=== PATIENT | female | born 1985 | race Hispanic/Latino ===

== ENCOUNTER 2021-04-24 09:18 | Emergency (ER) | payer OTHER ==
[2021-04-24 09:56] LABS: Basophils % 1.3 % (0-1.3); Lymphocytes % 23.3 % (15.3-44.8); MPV 7.9 fL (7.6-11.3); RBC Red Blood Cell Count 4.42 M/uL (3.86-4.86)
[2021-04-24 10:13] LABS: ALT/SGPT 19 U/L (12-78); AST/SGOT 9 U/L (15-37); Albumin 3.8 g/dL (3.4-5.0); Alkaline Phosphatase 74 U/L (45-117); BUN Blood Urea Nitrogen 10 mg/dL (7-18); Bicarbonate 25 mmol/L (21-32); Bilirubin Direct < 0.1 mg/dL (0-0.2); Bilirubin Total 0.3 mg/dL (0.2-1.0); Glucose Level 95 mg/dL (74-106); Lipase 94 U/L (73-393); Potassium 3.9 mmol/L (3.5-5.1); Protein, Total 7.2 g/dL (6.4-8.2); Sodium Level 141 mmol/L (136-145)
[2021-04-24] MEDS ORDERED: ONDANSETRON 4 MG/2 ML VIAL ONE (10:13)
[2021-04-24] MEDS ORDERED: MORPHINE 4 MG/ML SYR ONE (10:13)
[2021-04-24 10:44] LABS: Urine Blood Negative (Negative); Urine Glucose Negative (Negative); Urine Protein Negative (Negative); Urine pH 6.5 (5.0-7.0)
[2021-04-24 11:21] LABS: Anisocytosis 1+; Blood Morphology Comment NOTED (NOT SEEN); Platelet Estimate INCR; White Blood Cell Scan OK (OK)
[2021-04-24 11:22] LABS: Hypochromasia 2+
--- NOTE | 2021-04-24 11:22 | RAD REPORT ---
EXAM DESCRIPTION: CTAbdomen Pelvis W Contrast - 04/24/2021 10:55 am CLINICAL HISTORY: Abdominal pain. abdominal pain COMPARISON: CT ABD PELVIS W CONTRAST dated 11/19/2015 TECHNIQUE: Biphasic CT imaging of the abdomen and pelvis was performed with 100 ml non-ionic IV cont rast. All CT scans are performed using dose optimization technique as appropriate and may include automated exposure control or mA/KV adjustment according to patient size. FINDINGS: The lung bases are clear. The liver, spleen, pancreas, adrenal glands and kidneys are within normal limits. No bowel obstruction, free air, free fluid or abscess. Moderate fat containing umbilical hernia. The appendix is normal. No evidence of significant lymphadenopathy. No suspicious bony findings. The cervix appears enlarged somewhat irregular. There is irregular fluid in the cervix canal recommen d pelvic exam followup direct visualization. Infection or neoplasia are possible. IMPRESSION: Enlarged and irregular appearance to the cervix with inflammation pelvic fat. Bulky irre gular cervix with fluid warrants direct visualization/ pelvic examination. Neoplasia versus infection are both possibilities.
[2021-04-24] MEDS ORDERED: KETOROLAC 30 MG/ML INJ ONE (12:33)
[2021-04-24] MEDS ORDERED: FENTANYL CITR 100 MCG/2 ML ONE (12:33)
--- NOTE | 2021-04-24 13:28 | RAD REPORT ---
EXAM DESCRIPTION: US - Pelvis Complete - 04/24/2021 12:43 pm CLINICAL HISTORY: ABD PAIN Pelvic pain. COMPARISON: <Comparisons> FINDINGS: The uterus is normal in size, shape and echotexture. The uterus measures 12.2 x 6.4 x 3.5 cm The endometrial stripe measures 4 mm, normal. Mild fluid is seen in the lower uterine segment. Both ovaries are normal in size, shape and echotexture. The right ovary measures 3.9 x 2.6 cm. The left ovary measures 2.8 x 2.0 cm. No ovarian or parovarian lesions. No adnexal masses. Normal Doppler blood flow was demonstrated to both ovaries. Mild pelvic free fluid. IMPRESSION: Mild fluid is seen in the lower uterine and pelvis.No evidence of ovarian torsion.
--- NOTE | 2021-04-24 14:31 | ER ---
Nurse's Notes [facility] Name: Jana Draper Age: 35 yrs Sex: Female : 1985 Arrival Date: 04/24/2021 Time: 09:21 Bed 8 Private MD: Diagnosis: Pelvic Pain;Lower abdominal pain, unspecified;Anemia, unspecified Presentation: 04/24 09:28 Ebola Screen: Patient denies travel to an Ebola-affected area in the 21 days before ll1 illness onset. Risk Assessment: Do you want to hurt yourself or someone else? Patient reports no desire to harm self or others. 09:28 Acuity: MITCHEL 3 ll1 09:28 Method Of Arrival: Ambulatory 1 09:34 Chief complaint: Patient states: Abdominal pain since 04/12. Coronavirus screen: Client kg denies travel out of the [place] in the last 14 days. At this time, unable to obtain information related to travel outside the [place] At this time, the client does not indicate any symptoms associated with coronavirus-19. Initial Sepsis Screen: Does the patient meet any 2 criteria? No. Patient's initial sepsis screen is negative. Does the patient have a suspected source of infection? No. Patient's initial sepsis screen is negative. Onset of symptoms was April 12, 2021. Triage Assessment: 09:36 General: Appears in no apparent distress. Behavior is calm, cooperative, appropriate kg for age. Pain: Complains of pain in epigastric area, umbilical area and suprapubic area Pain currently is 10 out of 10 on a pain scale. at worst was 10 out of 10 on a pain scale. GI: Reports lower abdominal pain, upper abdominal pain. 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 - Social history:: Smoking status: Patient denies any tobacco usage or history of. Screenin:27 Abuse screen: Denies threats or abuse. Nutritional screening: No deficits noted. ll1 Tuberculosis screening: No symptoms or risk factors identified. Fall Risk IV access (20 points). Total Merino Fall Scale indicates No Risk (0-24 pts). Assessment: 09:40 General: Appears uncomfortable, Behavior is calm, cooperative, appropriate for age. ll1 Pain: Complains of pain in abdomen. Neuro: No deficits noted. Cardiovascular: No deficits noted. Respiratory: No deficits noted. GI: Abdomen is flat, Bowel sounds present X 4 quads. Abd is soft and non tender X 4 quads. Reports lower abdominal pain, upper abdominal pain. 10:40 Reassessment: No changes from previously documented assessment. Patient and/or family ll1 updated on plan of care and expected duration. Pain level reassessed. 11:40 Reassessment: No changes from previously documented assessment. Patient and/or family ll1 updated on plan of care and expected duration. Pain level reassessed. Patient is alert, oriented x 3, equal unlabored respirations, skin warm/dry/pink. 12:40 Reassessment: No changes from previously documented assessment. Patient and/or family ll1 updated on plan of care and expected duration. Pain level reassessed. Patient is alert, oriented x 3, equal unlabored respirations, skin warm/dry/pink. 13:40 Reassessment: No changes from previously documented assessment. Patient and/or family ll1 updated on plan of care and expected duration. Pain level reassessed. Patient is alert, oriented x 3, equal unlabored respirations, skin warm/dry/pink. 14:40 Reassessment: No changes from previously documented assessment. Patient and/or family ll1 updated on plan of care and expected duration. Pain level reassessed. Patient is alert, oriented x 3, equal unlabored respirations, skin warm/dry/pink. 15:40 Reassessment: No changes from previously documented assessment. Patient and/or family ll1 updated on plan of care and expected duration. Pain level reassessed. 16:40 Reassessment: No changes from previously documented assessment. Patient and/or family ll1 updated on plan of care and expected duration. Pain level reassessed. Vital Signs: 09:34 BP 102 / 63; Pulse 70; Resp 18; Temp 98.3(O); Pulse Ox 100% on R/A; Weight 67.2 kg; kg Height 5 ft. 4 in. (162.56 cm); Pain 10/10; 15:23 BP 104 / 68; Pulse 67; Resp 16; Pulse Ox 100% on R/A; ll1 09:34 Body Mass Index 25.43 (67.20 kg, 162.56 cm) kg ED Course: 09:21 Patient arrived in ED. ds1 09:23 Froylan Olea PA is PHCP. jmm 09:23 Sergei Conner MD is Attending Physician. jmm 09:24 Arm band placed on Patient placed in an exam room, on a stretcher. ll1 09:27 Terri Lawson, GIRISH is Primary Nurse. ll1 09:28 Triage completed. ll1 09:35 Inserted saline lock: 22 gauge in right antecubital area, using aseptic technique. ll1 Blood collected. 09:37 Patient has correct armband on for positive identification. Bed in low position. Call kg light in reach. Side rails up X 1. 10:55 CT Abd/Pelvis - IV Contrast Only In Process Unspecified. EDMS 12:45 US Pelvis Complete In Process Unspecified. EDMS 15:24 No provider procedures requiring assistance completed. IV discontinued, intact, ll1 bleeding controlled, No redness/swelling at site. Pressure dressing applied. Administered Medications: 10:00 Drug: morphine 4 mg Route: IVP; Site: right antecubital; 1 12:23 Follow up: Response: No adverse reaction; RASS: Alert and Calm (0) ll1 10:00 Drug: Zofran (Ondansetron) 4 mg Route: IVP; Site: right antecubital; ll1 12:24 Follow up: Response: No adverse reaction; RASS: Alert and Calm (0) ll1 12:20 Drug: Ketorolac 30 mg Route: IVP; Site: right antecubital; ll1 15:24 Follow up: Response: No adverse reaction ll1 12:23 Drug: fentaNYL (PF) 25 mcg Route: IVP; Site: right antecubital; ll1 12:23 Follow up: Response: No adverse reaction; RASS: Alert and Calm (0) ll1 14:58 Drug: AZITHromycin 1 grams Route: PO; ll1 15:24 Follow up: Response: No adverse reaction; RASS: Alert and Calm (0) 1 14:59 Drug: Rocephin (cefTRIAXone) 1 grams Route: IV; Rate: calculated rate; Site: right ll1 antecubital; 15:24 Follow up: Response: No adverse reaction; IV Status: Completed infusion; IV Intake: [id number] Intake: 15:24 IV: 20ml; Total: 20ml. 1 Outcome: 14:31 Discharge ordered by MD. serra 15:25 Patient left the ED. 1 15:25 Discharged to home ambulatory. [facility] 15:25 Condition: stable 15:25 Discharge instructions given to patient, Instructed on discharge instructions, follow up and referral plans. medication usage, Demonstrated understanding of instructions, follow-up care, medications, Prescriptions given X 2. Signatures: Dispatcher [employer] EDMS Froylan Olea PA PA jmm Sanford, Demi ds1 Treri Lawson RN RN ll1 Jodie Barragan RN RN kg
--- NOTE | 2021-04-24 14:31 | EDPHYS ---
Physician Documentation [facility] Name: Jana Draper Age: 35 yrs Sex: Female : 1985 Arrival Date: 04/24/2021 Time: 09:21 Bed 8 Private MD: ED Physician Sergei Conner HPI: 04/24 09:37 This 35 yrs old Female presents to ER via Ambulatory with complaints of jmm Abdominal Pain. 09:37 The patient presents with abdominal pain. Onset: The symptoms/episode began/occurred jmm gradually, 1 day(s) ago. The symptoms do not radiate. Associated signs and symptoms: Pertinent negatives: diarrhea, dysuria, fever, hematuria, vomiting. The symptoms are described as achy. Modifying factors: The symptoms are alleviated by nothing, the symptoms are aggravated by nothing. The patient has not experienced similar symptoms in the past. 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 - Social history:: Smoking status: Patient denies any tobacco usage or history of. ROS: 09:37 Constitutional: Negative for fever, chills, and weight loss, Cardiovascular: Negative jmm for chest pain, palpitations, and edema, Respiratory: Negative for shortness of breath, cough, wheezing, and pleuritic chest pain. 09:37 Abdomen/GI: Positive for abdominal pain. 09:37 All other systems are negative. Exam: 09:37 Constitutional: This is a well developed, well nourished patient who is awake, alert, jmm and in no acute distress. Head/Face: atraumatic. Eyes: EOMI, no conjunctival erythema appreciated ENT: Moist Mucus Membranes Neck: Trachea midline, Supple Chest/axilla: Normal chest wall appearance and motion. Cardiovascular: Regular rate and rhythm. No edema appreciated Respiratory: Normal respirations, no respiratory distress appreciated Abdomen/GI: Non distended, soft Back: Normal ROM Skin: General appearance color normal MS/ Extremity: Moves all extremities, no obvious deformities appreciated, no edema noted to the lower extremities Neuro: Awake and alert, normal gait Psych: Behavior is normal, Mood is normal, Patient is cooperative and pleasant Vital Signs: 09:34 BP 102 / 63; Pulse 70; Resp 18; Temp 98.3(O); Pulse Ox 100% on R/A; Weight 67.2 kg; kg Height 5 ft. 4 in. (162.56 cm); Pain 10/10; 15:23 BP 104 / 68; Pulse 67; Resp 16; Pulse Ox 100% on R/A; ll1 09:34 Body Mass Index 25.43 (67.20 kg, 162.56 cm) kg MDM: 09:33 Patient medically screened. [facility] 14:26 Data reviewed: vital signs, nurses notes. Counseling: I had a detailed discussion with ponce the patient and/or guardian regarding: the historical points, exam findings, and any diagnostic results supporting the discharge/admit diagnosis, lab results, radiology results, the need for outpatient follow up, to return to the emergency department if symptoms worsen or persist or if there are any questions or concerns that arise at home. ED course: Patient is alert and non toxic in appearance in the ED. Pain is relieved. Patient advised to follow up with PERSONNEL SCHEDULER for further evaluation. Patient understood and agrees with the plan of care. . 04/24 09:34 Order name: Basic Metabolic Panel; Complete Time: 10:29 [facility] 04/24 09:34 Order name: CBC with Diff; Complete Time: 11:23 [facility] 04/24 09:34 Order name: Hepatic Function; Complete Time: 10:29 [facility] 04/24 09:34 Order name: Lipase; Complete Time: 10:29 [facility] 04/24 10:21 Order name: Test, Serum; Complete Time: 11:05 1 04/24 10:43 Order name: Urine Dipstick-Ancillary; Complete Time: 10:53 [facility] 04/24 09:34 Order name: CT Abd/Pelvis - IV Contrast Only; Complete Time: 11:23 [facility] 04/24 10:44 Order name: Urine --Ancillary (enter results); Complete Time: 11:05 04/24 11:21 Order name: CBC Smear Scan; Complete Time: 11:23 [facility] 04/24 11:25 Order name: US Pelvis Complete; Complete Time: 13:35 [facility] 04/24 11:26 Order name: GC (GONORR/CHLAMYDIA) Probe [facility] 04/24 11:26 Order name: Wet Prep; Complete Time: 14:50 [facility] 04/24 12:10 Order name: CREATININE WHOLE BLOOD; Complete Time: 12:11 [facility] 04/24 09:34 Order name: IV Saline Lock; Complete Time: 09:35 [facility] 04/24 09:34 Order name: Labs collected and sent; Complete Time: 09:35 [facility] 04/24 09:34 Order name: Urine Dipstick-Ancillary (obtain specimen); Complete Time: 09:34 [facility] 04/24 09:34 Order name: Urine Test (obtain specimen); Complete Time: 10:47 [facility] Administered Medications: 10:00 Drug: morphine 4 mg Route: IVP; Site: right antecubital; ll1 12:23 Follow up: Response: No adverse reaction; RASS: Alert and Calm (0) ll1 10:00 Drug: Zofran (Ondansetron) 4 mg Route: IVP; Site: right antecubital; ll1 12:24 Follow up: Response: No adverse reaction; RASS: Alert and Calm (0) ll1 12:20 Drug: Ketorolac 30 mg Route: IVP; Site: right antecubital; ll1 15:24 Follow up: Response: No adverse reaction ll1 12:23 Drug: fentaNYL (PF) 25 mcg Route: IVP; Site: right antecubital; ll1 12:23 Follow up: Response: No adverse reaction; RASS: Alert and Calm (0) ll1 14:58 Drug: AZITHromycin 1 grams Route: PO; ll1 15:24 Follow up: Response: No adverse reaction; RASS: Alert and Calm (0) ll1 14:59 Drug: Rocephin (cefTRIAXone) 1 grams Route: IV; Rate: calculated rate; Site: right ll1 antecubital; 15:24 Follow up: Response: No adverse reaction; IV Status: Completed infusion; IV Intake: [id number] Disposition Summary: 04/24/21 14:31 Discharge Ordered Location: Home [facility] Condition: Stable [facility] Diagnosis - Pelvic Pain jmm - Lower abdominal pain, unspecified jmm - Anemia, unspecified jmm Followup: [facility] - With: Private Physician - When: 2 - 3 days - Reason: Recheck today's complaints, Continuance of care, Re-evaluation by your physician Discharge Instructions: - Discharge Summary Sheet jmm - Abdominal Pain, Adult jmm - Pelvic Pain, Female jmm Forms: - Medication Reconciliation Form jmm - Thank You Letter jmm - Antibiotic Education jmm - Prescription Opioid Use jmm - Work release form eb Prescriptions: - Ferrous Sulfate 325 mg (65 mg Iron) Oral Tablet - take 1 tablet by ORAL route every 8 hours; 90 tablet; Refills: 0, Product jmm Selection Permitted - Ultracet 37.5-325 mg Oral Tablet - take 1 tablet by ORAL route every 6 hours - for up to 5 days; do not exceed 8 jmm tablets per day.; 20 tablet; Refills: 0, Product Selection Permitted Addendum: 04/26/2021 13:34 Co-signature as Attending Physician, Sergei Conner MD I agree with the assessment and k dr plan of care. Signatures: Dispatcher [employer] Sergei Carrington MD MD kdr Mickail, Joel, PA PA jmm Lewis, Lynsay, RN RN ll1 Jodie Barragan RN RN kg
[2021-04-24] MEDS ORDERED: AZITHROMYCIN 250 MG TAB ONE (15:11)
[2021-04-24] MEDS ORDERED: CEFTRIAXONE/SWI 1gm 1 GM/10 ML SYR ONE (15:11)
[2021-04-24 15:39] VITALS: TEMP 98.3; O2SAT 100
[2021-04-24 15:40] VITALS: BP 104/68
== END 2021-04-24 15:25 | disposition home or self-care (01) ==
LOC: ER 09:18
DX: R10.2 Pelvic and perineal pain (principal); D64.9 Anemia, unspecified
CPT/HCPCS: 96365; 85025; 80048; 36415; 84703; 81025; 82565; 80076; 87210; 81003; 83690; 87590; 87490; 74177; 76856; 96375; 99284; Q9967; J3010; J0696; J2405

== ENCOUNTER 2022-03-29 08:50 | Emergency (ER) | payer OTHER ==
[2022-03-29] MEDS ORDERED: FLUORESCEIN SODIUM 1 MG/WRAP ONE (09:14)
[2022-03-29] MEDS ORDERED: TETRACAINE HCL 0.5% 4ML OPTH ONE (09:14)
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
[2022-03-29] MEDS ORDERED: GENTAMICIN 0.3% OPTH DROP 5ML ONE (10:41)
[2022-03-29 10:43] VITALS: BP 116/88; TEMP 98.3; O2SAT 100
== END 2022-03-29 10:38 | disposition home or self-care (01) ==
LOC: ER 08:50
DX: H10.31 Unspecified acute conjunctivitis, right eye (principal)
CPT/HCPCS: 99283

== ENCOUNTER 2023-09-06 09:55 | Emergency (ER) | payer OTHER ==
[2023-09-06 11:54] LABS: Absolute Lymphocytes (CBC) 1.7 K/uL (0.7-4.9); Hematocrit 28.4 % (36.0-45.0); MPV 7.3 fL (7.6-11.3); Platelets 485 thou/uL (152-406); RBC Red Blood Cell Count 4.37 M/uL (3.86-4.86)
[2023-09-06 11:57] LABS: Specific Gravity 1.005 (1.005-1.030)
[2023-09-06 12:09] LABS: Specific Gravity 1.005 (1.005-1.030); Urine Bacteria None Seen /HPF (<20); Urine Bilirubin NEGATIVE (Negative); Urine Blood Negative (Negative); Urine Clarity Clear (Clear); Urine Color Colorless (Yellow); Urine Glucose NEGATIVE (Negative); Urine Protein NEGATIVE (Negative); Urine RBC <5 /HPF (None Seen); Urine Urobilinogen Normal (Normal)
[2023-09-06 12:11] LABS: Albumin 3.6 g/dL (3.4-5.0); Bilirubin Total 0.2 mg/dL (0.2-1.0); Potassium 3.7 mEq/L (3.5-5.1); Protein, Total 7.4 g/dL (6.4-8.2)
[2023-09-06 12:41] LABS: Anisocytosis 1+; Blood Morphology Comment NOTED (NOT SEEN); Hypochromasia 2+; Ovalocytes 1+; Platelet Estimate INCR; White Blood Cell Scan OK (OK)
--- NOTE | 2023-09-06 12:47 | RAD REPORT ---
EXAM DESCRIPTION: CTAbdomen Pelvis Wo Contrast - 09/06/2023 12:37 pm CLINICAL HISTORY: ABD PAIN COMPARISON: Abdomen Pelvis W Contrast dated 04/24/2021; Stone Protocol dated 12/14/2017; CT ABD PELVI S W CONTRAST dated 11/19/2015 TECHNIQUE: CT of the abdomen and pelvis was performed. All CT scans are performed using dose optimization technique as appropriate and may include automated exposure control or mA/KV adjustment according to patient size. FINDINGS: Lower chest: No acute abnormality. Question mild cardiomegaly. Liver: No acute abnormality or suspicious lesions. Biliary: No biliary ductal dilatation. Stomach: No significant focal abnormality. Duodenum: No significant focal abnormality. Pancreas: No significant abnormality. Spleen: No significant abnormality. Adrenal: No suspicious lesions. Kidney/ureter: No hydronephrosis. No renal calculi. Retroperitoneum: No retroperitoneal adenopathy. Vascular: No aneurysm. Bowel: No significant focal abnormality. Normal appendix. Peritoneum: No ascites or free air. Fat containing umbilical hernia. Bladder: Grossly unremarkable. Reproductive: No adnexal masses. Bones: No acute fracture. Other: n/a IMPRESSION: No acute intra-abdominal or pelvic finding. Normal appendix. No urinary tract calculi.
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
--- NOTE | 2023-09-06 13:17 | EDPHYS ---
Physician Documentation [facility] Name: Sydney Draper Age: 37 yrs Sex: Female : 1985 Arrival Date: 09/06/2023 Time: 09:55 Bed 19 Private MD: ED Physician Saji Cross HPI: 09/06 10:32 This 37 yrs old Female presents to ER via Ambulatory with complaints of Low rt Back Pain, Abdominal Pain. 10:32 Patient presents to the ED with about 1 week of a right lower back pain that radiates rt to the suprapubic region. She reports slight burning with urination. States that the pain is worse with walking, not take anything for relief. Pain is aching nature, otherwise radiating, moderate severity, no other aggravating elevating factors.. 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 - Social history:: Smoking status: Patient denies any tobacco usage or history of. - Family history:: not pertinent. ROS: 10:32 Constitutional: Negative for fever, chills, and weight loss, Cardiovascular: Negative rt for chest pain, palpitations, and edema, Respiratory: Negative for shortness of breath, cough, wheezing, and pleuritic chest pain, MS/Extremity: Negative for injury and deformity, Skin: Negative for injury, rash, and discoloration, Neuro: Negative for headache, weakness, numbness, tingling, and seizure, Psych: Negative for depression, anxiety, suicide ideation, homicidal ideation, and hallucinations, 10:32 Back: Positive for pain with movement, Negative for injury or acute deformity, 10:32 : Positive for burning with urination, Negative for flank pain, Exam: 10:32 Constitutional: This is a well developed, well nourished patient who is awake, alert, rt and in no acute distress. Head/Face: Normocephalic, atraumatic. Chest/axilla: Normal chest wall appearance and motion. Nontender with no deformity. No lesions are appreciated. Cardiovascular: Regular rate and rhythm with a normal S1 and S2. No gallops, murmurs, or rubs. Normal PMI, no JVD. No pulse deficits. Respiratory: Lungs have equal breath sounds bilaterally, clear to auscultation and percussion. No rales, rhonchi or wheezes noted. No increased work of breathing, no retractions or nasal flaring. Skin: Warm, dry with normal turgor. Normal color with no rashes, no lesions, and no evidence of cellulitis. MS/ Extremity: Pulses equal, no cyanosis. Neurovascular intact. Full, normal range of motion. Neuro: Awake and alert, GCS 15, oriented to person, place, time, and situation. Cranial nerves II-XII grossly intact. Motor strength 5/5 in all extremities. Sensory grossly intact. Cerebellar exam normal. Normal gait. Psych: Awake, alert, with orientation to person, place and time. Behavior, mood, and affect are within normal limits. 10:32 Abdomen/GI: Mild tenderness to the suprapubic region without rebound, guarding, distention, 10:32 Back: Tenderness to the right lower lumbar region, no midline tenderness, no CVAT, Vital Signs: 10:03 BP 108 / 76; Pulse 70; Resp 18; Temp 98; Pulse Ox 100% ; Weight 68.04 kg; Height 5 ft. mb9 0 in. ; 12:00 BP 107 / 66; Pulse 66; Resp 18; Pulse Ox 99% on R/A; db 14:15 BP 111 / 61; Pulse 65; Resp 17; Pulse Ox 98% ; ll1 10:03 Body Mass Index 29.29 (68.04 kg, 152.4 cm) mb9 MDM: 10:18 Patient medically screened. rt 13:20 Differential diagnosis: Mechanical back pain, kidney stone, pyelonephritis. Data rt reviewed: vital signs, nurses notes, lab test result(s), radiologic studies. I considered the following discharge prescriptions or medication management in the emergency department Medications were administered in the Emergency Department. See MAR. Independent interpretation of the following test(s) in the Emergency Department CT Scan: My interpretation is No ureteral stone seen on interpretation of CT scan images. Test considered but Not performed: MRI: Symptoms are not consistent with cauda equina syndrome, spinal epidural abscess, MRI is not emergently indicated. Counseling: I had a detailed discussion with the patient and/or guardian regarding the historical points, exam findings, and any diagnostic results supporting the discharge/admit diagnosis, lab results, radiology results, the need for outpatient follow up. Response to treatment: the patient's symptoms have markedly improved after treatment. 09/06 10:26 Order name: UAM; Complete Time: 12:22 rt 09/06 10:26 Order name: PREGU; Complete Time: 12:22 rt 09/06 10:26 Order name: CBC with Diff; Complete Time: 12:43 rt 09/06 10:26 Order name: CMP; Complete Time: 12:22 rt 09/06 11:59 Order name: CBC Smear Scan; Complete Time: 12:43 EDMS 09/06 10:26 Order name: CT Abd/Pelvis - Without Contrast; Complete Time: 12:49 rt Administered Medications: 11:50 Drug: Ketorolac IVP 15 mg IVP once Route: IVP; Site: right antecubital; db 14:16 Follow up: Response: No adverse reaction; Pain is decreased; RASS: Alert and Calm (0) ll1 Disposition Summary: 09/06/23 13:16 Discharge Ordered Notes: Location: Home rt Problem: new rt Symptoms: have improved rt Condition: Stable rt Diagnosis - Low back pain rt Followup: rt - With: Private Physician - When: 2 - 3 days - Reason: Discharge Instructions: - Discharge Summary Sheet rt - Acute Back Pain, Adult rt Forms: - Medication Reconciliation Form rt - Thank You Letter rt - Antibiotic Education rt - Prescription Opioid Use rt - Patient Portal Instructions rt - Leadership Thank You Letter rt Prescriptions: - Cyclobenzaprine 10 mg Oral Tablet - take 1 tablet ORAL route every 8 hours As needed; 30 tablet; Refills: 0, rt Product Selection Permitted Signatures: Dispatcher [employer] Gissell Marinelli RN RN Megan Porter RN RN mb9 Saji Cross MD MD rt Terri Lawson RN ll1
[2023-09-06 14:45] VITALS: TEMP 98
[2023-09-06 14:48] VITALS: BP 111/61; O2SAT 98
== END 2023-09-06 14:16 | disposition home or self-care (01) ==
LOC: ER 09:55
DX: M54.50 Low back pain, unspecified (principal)
CPT/HCPCS: 36415; 74176; 80053; 81001; 81025; 85025; 96374; 99284

== ENCOUNTER → 2024-01-04 | Emergency (ER) | payer OTHER ==
[~2024-01-04] MED LIST: DIPHENHYDRAMINE 25 MG TAB/CAP ONE; FAMOTIDINE 20 MG TAB ONE; IBUPROFEN 400 MG TAB ONE; MORPHINE 4 MG/ML SYR ONE; NA CHLORIDE 0.9% 1,000 ML ONE; ONDANSETRON 4 MG/2 ML VIAL ONE; PROMETHAZINE 25 MG TABLET ONE
[2024-01-04 18:16] LABS: Absolute Basophils 0.1 K/uL (0-0.5); Absolute Eosinophils 0.1 K/uL (0-0.5); Absolute Lymphocytes (CBC) 2.4 K/uL (0.7-4.9); Absolute Monocytes 0.4 K/uL (0.1-1.3); Absolute Neutrophil 5.3 K/uL (1.8-8.0); Basophils % 1.3 % (0-1.3); Eosinophils % 0.8 % (0-4.4); Hematocrit 28.5 % (36.0-45.0); Hemoglobin 8.8 g/dL (12.0-15.0); Lymphocytes % 28.8 % (15.3-44.8); MCH 19.4 pg (27.0-35.0); MCHC 30.8 g/dL (32.0-36.0); MPV 7.3 fL (7.6-11.3); Monocytes % 5.2 % (3.3-12.3); Neutrophils % 63.9 % (41.7-73.7); Platelets 505 thou/uL (152-406); RBC Red Blood Cell Count 4.53 M/uL (3.86-4.86); Red Cell Distribution Width 21.3 % (12.1-15.2)
[2024-01-04 18:27] LABS: Anion Gap 9.5 mEq/L (5.0-15.0); Bilirubin Total 0.3 mg/dL (0.2-1.0); Globulin 3.9 g/dL (2.3-3.5); Potassium 3.5 mEq/L (3.5-5.1); Protein, Total 7.9 g/dL (6.4-8.2)
[2024-01-04 18:54] LABS: Specific Gravity 1.015 (1.005-1.030); Sqamous Epithelial <5 /HPF (None Seen); Urine Bacteria None Seen /HPF (<20); Urine Bilirubin NEGATIVE (Negative); Urine Blood Negative (Negative); Urine Clarity Turbid (Clear); Urine Color Light-Yellow (Yellow); Urine Culture Reflex Order NOT NEEDED; Urine Glucose NEGATIVE (Negative); Urine Ketones NEGATIVE (Negative); Urine Microscopic Reflex YN ORDER UMIC; Urine Mucus Slight /HPF (None Seen); Urine Nitrite NEGATIVE (Negative); Urine Protein NEGATIVE (Negative); Urine RBC <5 /HPF (None Seen); Urine Urobilinogen Normal (Normal); Urine WBC <5 /HPF (<5); Urine pH 5.5 (5.0-7.0)
--- NOTE | 2024-01-04 19:21 | RAD REPORT ---
EXAM DESCRIPTION: CTAbdomen Pelvis W Contrast - 01/04/2024 7:14 pm CLINICAL HISTORY: Abdominal pain. ABD PAIN COMPARISON: <Comparisons> TECHNIQUE: Biphasic CT imaging of the abdomen and pelvis was performed with 100 ml non-ionic IV cont rast. All CT scans are performed using dose optimization technique as appropriate and may include automated exposure control or mA/KV adjustment according to patient size. FINDINGS: The lung bases are clear. The liver, spleen, pancreas, adrenal glands and kidneys are within normal limits. No bowel obstruction, free air, free fluid or abscess. Moderate fat containing ventral hernia. The ap pendix is normal. No evidence of significant lymphadenopathy. No suspicious bony findings. IMPRESSION: No acute intra-abdominal or pelvic finding. Moderate fat containing ventral hernia.
[2024-01-04 20:46] LABS: Anisocytosis 1+; Blood Morphology Comment NOTED (NOT SEEN); Hypochromasia 2+; Microcytosis 2+; Platelet Estimate INCR; White Blood Cell Scan OK (OK)
--- NOTE | 2024-01-04 21:14 | RAD REPORT ---
EXAM DESCRIPTION: US - Transvaginal Study Probe - 01/04/2024 8:59 pm CLINICAL HISTORY: eval ovaries for torsion Pelvic pain. COMPARISON: <Comparisons> FINDINGS: The uterus is normal in size, shape and echotexture. The uterus measures 11.0 x 5.9 cm. The endometrial stripe measures 7 mm, normal. Nonvisualized left ovary due to bowel gas. The right ovary measures 3.5 x 3.0 cm with normal blood fl ow. No significant pelvic ascites. IMPRESSION: Negative for right ovarian torsion.Left ovary obscured by bowel gas.
--- NOTE | 2024-01-04 22:44 | EDPHYS ---
Physician Documentation [facility] Name: Syndey Draper Age: 38 yrs Sex: Female : 1985 Arrival Date: 01/04/2024 Time: 17:15 Bed 7 Private MD: ED Physician Carmine Berkowitz HPI: 01/03 20:53 This 38 yrs old Female presents to ER via Ambulatory with complaints of rt Abdominal Pain. 20:53 Patient presents to the ED with intermittent right lower quadrant pain for about 2 rt days. Worsened today. Denies nausea, vomiting, diarrhea, urinary symptoms. Denies other acute complaints at this time, symptoms are moderate in severity, aching nature, nonradiating, no other aggravating or alleviating factors.. Historical: - Allergies: 17:40 NKA; iw - Home Meds: 17:41 None [Active]; iw - PMHx: 17:40 Deaf; iw - PSHx: 17:40 None; iw - Immunization history:: Adult Immunizations unknown. - Social history:: Smoking status: Patient denies any tobacco usage or history of. - Family history:: not pertinent. ROS: 20:53 Constitutional: Negative for fever, chills, and weight loss, Cardiovascular: Negative rt for chest pain, palpitations, and edema, Respiratory: Negative for shortness of breath, cough, wheezing, and pleuritic chest pain, MS/Extremity: Negative for injury and deformity, Skin: Negative for injury, rash, and discoloration, Neuro: Negative for headache, weakness, numbness, tingling, and seizure, Psych: Negative for depression, anxiety, suicide ideation, homicidal ideation, and hallucinations, 20:53 Abdomen/GI: Positive for abdominal pain, Negative for nausea and vomiting, Exam: 20:53 Constitutional: This is a well developed, well nourished patient who is awake, alert, rt and in no acute distress. Head/Face: Normocephalic, atraumatic. Chest/axilla: Normal chest wall appearance and motion. Nontender with no deformity. No lesions are appreciated. Cardiovascular: Regular rate and rhythm with a normal S1 and S2. No gallops, murmurs, or rubs. Normal PMI, no JVD. No pulse deficits. Respiratory: Lungs have equal breath sounds bilaterally, clear to auscultation and percussion. No rales, rhonchi or wheezes noted. No increased work of breathing, no retractions or nasal flaring. Skin: Warm, dry with normal turgor. Normal color with no rashes, no lesions, and no evidence of cellulitis. MS/ Extremity: Pulses equal, no cyanosis. Neurovascular intact. Full, normal range of motion. Neuro: Awake and alert, GCS 15, oriented to person, place, time, and situation. Cranial nerves II-XII grossly intact. Motor strength 5/5 in all extremities. Sensory grossly intact. Cerebellar exam normal. Normal gait. Psych: Awake, alert, with orientation to person, place and time. Behavior, mood, and affect are within normal limits. 20:53 Abdomen/GI: Tenderness to the right lower quadrant with mild guarding, no rebound, no distention, Vital Signs: 17:38 BP 137 / 74; Pulse 80; Resp 16; Temp 98.3; Pulse Ox 99% ; iw 18:09 BP 117 / 81; Pulse 74; Resp 18; Pulse Ox 100% on R/A; ph 19:10 BP 115 / 72; Pulse 70; Resp 18; Pulse Ox 100% on R/A; ph 19:45 BP 110 / 66; Pulse 70; Resp 18; Pulse Ox 100% on R/A; vc1 20:15 BP 93 / 71; Pulse 75; Resp 18; Pulse Ox 100% ; vc1 21:15 BP 115 / 60; Pulse 73; Resp 17; Pulse Ox 100% ; vc1 23:06 BP 112 / 67; Pulse 72; Resp 16 S; Pulse Ox 98% on R/A; jw7 MDM: 17:43 Patient medically screened. rt 22:38 Data reviewed: vital signs, nurses notes. sp4 22:39 ED course: EXAM DESCRIPTION: US - Transvaginal Study Probe - 01/04/2024 8:59 pm CLINICAL sp4 HISTORY: eval ovaries for torsion Pelvic pain. COMPARISON: FINDINGS: The uterus is normal in size, shape and echotexture. The uterus measures 11.0 x 5.9 cm. The endometrial stripe measures 7 mm, normal. Nonvisualized left ovary due to bowel gas. The right ovary measures 3.5 x 3.0 cm with normal blood flow. No significant pelvic ascites. IMPRESSION: Negative for right ovarian torsion. Left ovary obscured by bowel gas. . 22:40 Differential diagnosis: Dysmenorrhea, Endometriosis, gastritis, pancreatitis. ED sp4 course: EXAM DESCRIPTION: CTAbdomen Pelvis W Contrast - 01/04/2024 7:14 pm CLINICAL HISTORY: Abdominal pain. ABD PAIN COMPARISON: TECHNIQUE: Biphasic CT imaging of the abdomen and pelvis was performed with 100 ml non-ionic IV contrast. All CT scans are performed using dose optimization technique as appropriate and may include automated exposure control or mA/KV adjustment according to patient size. FINDINGS: The lung bases are clear. The liver, spleen, pancreas, adrenal glands and kidneys are within normal limits. No bowel obstruction, free air, free fluid or abscess. Moderate fat containing ventral hernia. The appendix is normal. No evidence of significant lymphadenopathy. No suspicious bony findings. IMPRESSION: No acute intra-abdominal or pelvic finding. Moderate fat containing ventral hernia. . 01/03 17:52 Order name: CBC with Diff; Complete Time: 20:52 rt 01/03 17:52 Order name: CMP; Complete Time: 19:02 rt 01/03 17:52 Order name: Lipase; Complete Time: 19:02 rt 01/03 17:52 Order name: Test, Urine; Complete Time: 19:02 rt 01/03 17:52 Order name: Urinalysis w/ reflexes; Complete Time: 19:02 rt 01/03 20:46 Order name: CBC Smear Scan; Complete Time: 20:52 EDMS 01/03 17:52 Order name: CT Abd/Pelvis - IV Contrast Only; Complete Time: 19:22 rt 01/03 21:01 Order name: Transvaginal Study Probe; Complete Time: 22:24 EDMS 01/03 17:52 Order name: IV Saline Lock; Complete Time: 18:05 rt 01/03 17:52 Order name: Labs collected and sent; Complete Time: 18:05 rt Administered Medications: 18:07 Drug: NS 0.9% IV 1000 ml IV at 1 bolus Per protocol; 1000 mL bolus Route: IV; Rate: 1 ph bolus; Site: right antecubital; 23:05 Follow up: Response: No adverse reaction; IV Status: Completed infusion; IV Intake: jw7 1000ml 18:07 Drug: Ondansetron IVP 4 mg IVP once; over 2 minutes Route: IVP; Site: right antecubital;ph 18:45 Follow up: Response: No adverse reaction ph 18:08 Drug: morphine IVP or IV 4 mg IVP once over 4 mins Route: IVP; Infused Over: 4 mins; ph Site: right antecubital; 18:45 Follow up: Response: No adverse reaction ph 23:04 Drug: Promethazine PO 25 mg PO once Route: PO; jw7 23:05 Follow up: Response: No adverse reaction jw7 23:04 Drug: Ibuprofen PO 800 mg PO once Route: PO; jw7 23:05 Follow up: Response: No adverse reaction jw7 23:04 Drug: Famotidine PO 20 mg PO once Route: PO; jw7 23:05 Follow up: Response: No adverse reaction jw7 23:05 Drug: diphenhydrAMINE PO 25 mg PO once Route: PO; jw7 23:06 Follow up: Response: No adverse reaction jw7 Disposition Summary: 01/04/24 22:43 Discharge Ordered Notes: Please see General Surgeon for evaluation for Umbilical hernia Location: Home sp4 Problem: new sp4 Symptoms: have improved sp4 Condition: Stable sp4 Diagnosis - Abdominal pain, unspecified sp4 - Right abdominal pain, , Umbilical hernia without bowel incarceration sp4 Followup: sp4 - With: Zan Vo MD - When: 7 - 10 days - Reason: Recheck today's complaints Discharge Instructions: - Discharge Summary Sheet sp4 - Umbilical Hernia, Adult sp4 Forms: - Patient Portal Instructions sp4 - Leadership Thank You Letter sp4 Prescriptions: - naproxen sodium 220 mg Oral capsule - take 1 capsule ORAL route every 8 hours PRN pain; 30 capsule; Refills: 0, sp4 Product Selection Permitted - promethazine 25 mg Oral tablet - take 1 tablet ORAL route every 8 hours As needed PRN nausea; 30 tablet; sp4 Refills: 0, Product Selection Permitted - dicyclomine 20 mg Oral tablet - take 1 tablet ORAL route 3 times per day PRN abdominal pain; 30 tablet; sp4 Refills: 0, Product Selection Permitted Signatures: Dispatcher [employer] Rolanda Clark RN RN iw Hall, Patricia, RN RN ph Waits, Jodi, RN RN jw7 Saji Cross MD MD rt Carmine Berkowitz MD MD sp4 Corrections: (The following items were deleted from the chart) 21:01 20:13 Pelvis Complete+[email or web address] ordered. EDMS EDMS
--- NOTE | 2024-01-04 22:44 | ER ---
Nurse's Notes [facility] Name: Sydney Draper Age: 38 yrs Sex: Female : 1985 Arrival Date: 01/04/2024 Time: 17:15 Bed 7 Private MD: Diagnosis: Abdominal pain, unspecified;Right abdominal pain, , Umbilical hernia without bowel incarceration Presentation: 01/03 17:38 Chief complaint: Patient states: abd pain X 2 days , no vomiting or diarrhea no iw constipation. Coronavirus screen: At this time, the client does not indicate any symptoms associated with coronavirus-19. Ebola Screen: Patient negative for fever greater than or equal to 101.5 degrees Fahrenheit, and additional compatible Ebola Virus Disease symptoms Patient denies exposure to infectious person. Patient denies travel to an Ebola-affected area in the 21 days before illness onset. No symptoms or risks identified at this time. Initial Sepsis Screen: Does the patient meet any 2 criteria? No. Patient's initial sepsis screen is negative. Does the patient have a suspected source of infection? No. Patient's initial sepsis screen is negative. Risk Assessment: Do you want to hurt yourself or someone else? Patient reports no desire to harm self or others. Onset of symptoms was January 02, 2024. 17:38 Method Of Arrival: Ambulatory iw 17:38 Acuity: MITCHEL 3 iw Historical: - Allergies: 17:40 NKA; iw - Home Meds: 17:41 None [Active]; iw - PMHx: 17:40 Deaf; iw - PSHx: 17:40 None; iw - Immunization history:: Adult Immunizations unknown. - Social history:: Smoking status: Patient denies any tobacco usage or history of. - Family history:: not pertinent. Screenin:[facility] ED Fall Risk Assessment (Adult) History of falling in the last 3 months, ph including since admission No falls in past 3 months (0 pts) Confusion or Disorientation No (0 pts) Intoxicated or Sedated No (0 pts) Impaired Gait No (0 pts) Mobility Assist Device Used No (0 pt) Altered Elimination No (0 pt) Score/Fall Risk Level 0 - 2 = Low Risk Oriented to surroundings, Maintained a safe environment, Assessed \T\ reinforced patient's understanding of fall precautions, Hourly rounding (assess needs \T\ fall precautionary measures) done. Abuse screen: Denies threats or abuse. Denies injuries from another. Nutritional screening: No deficits noted. Tuberculosis screening: No symptoms or risk factors identified. Assessment: 18:08 General: Appears in no apparent distress. comfortable, well groomed, Behavior is calm, ph cooperative, appropriate for age. Pain: Complains of pain in right lower quadrant. Neuro: Level of Consciousness is awake, alert, obeys commands, Oriented to person, place, time, situation. Cardiovascular: Capillary refill < 3 seconds in bilateral fingers Patient's skin is warm and dry. Respiratory: Airway is patent Respiratory effort is even, unlabored. GI: Abdomen is non-distended, Bowel sounds present X 4 quads. Abd is soft X 4 quads Reports lower abdominal pain, Patient currently denies diarrhea, nausea, vomiting. Derm: Skin is pink, warm \T\ dry. 19:43 General: Appears in no apparent distress. comfortable, well groomed, Behavior is calm, vc1 cooperative, appropriate for age. Pain: Complains of pain in right lower quadrant Pain does not radiate. Neuro: Level of Consciousness is awake, alert, obeys commands, Oriented to person, place, time, situation. Cardiovascular: Heart tones S1 S2 Capillary refill < 3 seconds Patient's skin is warm and dry. Respiratory: Airway is patent Respiratory effort is even, unlabored, Respiratory pattern is regular, symmetrical, Breath sounds are clear. GI: Abdomen is non-distended, Bowel sounds present X 4 quads. Abd is soft and non tender Reports lower abdominal pain, Patient currently denies diarrhea, nausea, vomiting. : No deficits noted. No signs and/or symptoms were reported regarding the genitourinary system. EENT: Reports Hearing impaired. Derm: Skin is pink, warm \T\ dry. Skin temperature is warm. 20:46 Reassessment: Patient appears in no apparent distress at this time. No changes from vc1 previously documented assessment. Patient and/or family updated on plan of care and expected duration. Pain level reassessed. Patient is alert, oriented x 3, equal unlabored respirations, skin warm/dry/pink. 21:54 Reassessment: Patient appears in no apparent distress at this time. No changes from vc1 previously documented assessment. Patient and/or family updated on plan of care and expected duration. Pain level reassessed. Patient is alert, oriented x 3, equal unlabored respirations, skin warm/dry/pink. 23:06 Reassessment: Patient appears in no apparent distress at this time. Patient and/or jw7 family updated on plan of care and expected duration. Pain level reassessed. Patient is alert, oriented x 3, equal unlabored respirations, skin warm/dry/pink. Patient states feeling better. Vital Signs: 17:38 BP 137 / 74; Pulse 80; Resp 16; Temp 98.3; Pulse Ox 99% ; iw 18:09 BP 117 / 81; Pulse 74; Resp 18; Pulse Ox 100% on R/A; ph 19:10 BP 115 / 72; Pulse 70; Resp 18; Pulse Ox 100% on R/A; ph 19:45 BP 110 / 66; Pulse 70; Resp 18; Pulse Ox 100% on R/A; vc1 20:15 BP 93 / 71; Pulse 75; Resp 18; Pulse Ox 100% ; vc1 21:15 BP 115 / 60; Pulse 73; Resp 17; Pulse Ox 100% ; vc1 23:06 BP 112 / 67; Pulse 72; Resp 16 S; Pulse Ox 98% on R/A; jw7 ED Course: 17:19 Patient arrived in ED. rg4 17:31 Saji Cross MD is Attending Physician. rt 17:40 Triage completed. iw 17:41 Arm band placed on. iw 17:56 Nithya Rodriguez, RN is Primary Nurse. ph 17:57 Patient has correct armband on for positive identification. Bed in low position. Call ph light in reach. Side rails up X 1. Pulse ox on. NIBP on. Door closed. Noise minimized. Warm blanket given. 18:05 Inserted saline lock: 20 gauge in right antecubital area, using aseptic technique. kc6 Blood collected. Patient maintains SpO2 saturation greater than 95% on room air. 18:45 Urinalysis w/ reflexes Sent. ph 18:45 Test, Urine Sent. ph 18:45 Urine collected: clean catch specimen, clear. ph 19:00 Provided Education on: Use of Call Light. jw7 19:[address] ph 19:15 CT Abd/Pelvis - IV Contrast Only In Process Unspecified. EDMS 20:53 Attending Physician role handed off by Saji Cross MD sp4 20:53 Carmine Berkowitz MD is Attending Physician. sp4 21:01 Transvaginal Study Probe In Process Unspecified. EDMS 22:41 Zan Vo MD is Referral Physician. sp4 23:08 No provider procedures requiring assistance completed. IV discontinued, intact, jw7 bleeding controlled, No redness/swelling at site. Pressure dressing applied. Administered Medications: 18:07 Drug: NS 0.9% IV 1000 ml IV at 1 bolus Per protocol; 1000 mL bolus Route: IV; Rate: 1 ph bolus; Site: right antecubital; 23:05 Follow up: Response: No adverse reaction; IV Status: Completed infusion; IV Intake: jw7 1000ml 18:07 Drug: Ondansetron IVP 4 mg IVP once; over 2 minutes Route: IVP; Site: right antecubital;ph 18:45 Follow up: Response: No adverse reaction ph 18:08 Drug: morphine IVP or IV 4 mg IVP once over 4 mins Route: IVP; Infused Over: 4 mins; ph Site: right antecubital; 18:45 Follow up: Response: No adverse reaction ph 23:04 Drug: Promethazine PO 25 mg PO once Route: PO; jw7 23:05 Follow up: Response: No adverse reaction jw7 23:04 Drug: Ibuprofen PO 800 mg PO once Route: PO; jw7 23:05 Follow up: Response: No adverse reaction jw7 23:04 Drug: Famotidine PO 20 mg PO once Route: PO; jw7 23:05 Follow up: Response: No adverse reaction jw7 23:05 Drug: diphenhydrAMINE PO 25 mg PO once Route: PO; jw7 23:06 Follow up: Response: No adverse reaction jw7 Medication: 17:57 VIS not applicable for this client. ph Intake: 23:05 IV: 1000ml; Total: 1000ml. jw7 Outcome: 22:43 Discharge ordered by . sp4 23:08 Discharged to home ambulatory, jw7 23:08 Condition: stable 23:08 Discharge instructions given to patient, Instructed on discharge instructions, follow up and referral plans. medication usage, Demonstrated understanding of instructions, follow-up care, medications, Prescriptions given X 3, 23:09 Patient left the ED. jw7 Signatures: Dispatcher [employer] EDMS Rolanda Simon RN RN Nithya Rodriguez RN RN Cristy [id number] Ghada Arreola, RN RN vc1 Camilla Garcia, RN RN jw7 Kylee Arnold, RN RN kc6 Saji Cross MD MD rt Carmine Berkowitz MD MD sp4
[2024-01-05 00:43] VITALS: BP 112/67; TEMP 98.3; O2SAT 98
== END ==
LOC: ER 17:15
DX: K42.9 Umbilical hernia without obstruction or gangrene (principal)
CPT/HCPCS: 96361; 85025; 81001; 36415; 81025; 83690; 80053; 74177; 76830; 96375; 96374; 99285; Q9967; Q0169; J2405; J7030